=== PATIENT | male | born 1960 | race Caucasian/White ===

== ENCOUNTER 2019-02-13 03:01 | Emergency (ER) | payer OTHER ==
[2019-02-13 03:09] VITALS: BMI 25.0
--- NOTE | 2019-02-13 03:45 | PDOC ---
History of Present Illness - General Chief Complaint: Choking Sensation Stated Complaint: THROAT PAIN Time Seen by Provider: 02/13/19 03:44 Past History - Past Medical History Allergies/Adverse Reactions: Allergies Allergy/AdvReac Type Severity Reaction Status Date / Time No Known Allergies Allergy Verified 02/13/19 03:09 Home Medications: Ambulatory Orders Apremilast [Otezla] 30 mg PO BID 02/13/19 Lisinopril [Zestril] 2.5 mg PO DAILY 02/13/19 Methylprednisolone [Medrol Dose Lukasz] 4 mg PO ASDIR #21 tablet 02/13/19 COPD: No HTN: Yes Other medical history: psoriasis - Psycho Social/Smoking Cessation Hx Smoking History: Never smoked Hx Alcohol Use: Yes Drug/Substance Use Hx: No *Physical Exam - Vital Signs Last Vital Signs Temp Pulse Resp BP Pulse Ox 97.7 F 68 18 172/85 H 99 02/13/19 03:05 02/13/19 03:05 02/13/19 03:05 02/13/19 03:05 02/13/19 03:05 Medical Decision Making - Medical Decision Making HPI: 59yo M with PMH of HTN, psoriasitic arthritis presenting with abnormal throat sensation. Patient states he had pizza last night for dinner and went to bed. He woke up at 2:30am with a sensation that "something was stuck" in his throat. Has been able to control secretions and tolerated drinking water. No nausea or vomiting. Denies new exposures: no new detergents, clothing, foods, animals, environments, medications/dose changes. Never had anything like this before. Denies rashes or itching. Takes lisinopril 2.5mg daily. Snores at night and has had sleep studies performed in the past. No fevers, chills, chest pain, or shortness of breath. PCP: Dr. Pagan ROS: Constitutional: no fever, no chills HEENT: +throat pain, no dysphagia Cardiovascular: no chest pain, no palpitations Respiratory: no cough, no shortness of breath Gastrointestinal: no abdominal pain, no nausea Genitourinary: no dysuria, no hematuria Musculoskeletal: no myalgia, no arthralgia Skin: no rash, no itching Neurologic: no headache, no weakness PE: General: Awake, alert, and fully oriented, in no acute distress Head: No signs of trauma Eyes: EOMI, sclera anicteric ENT: Moist mucus membranes, uvula swollen and midline, no oral masses or lesions Neck: Normal ROM, supple Lungs: Lungs clear, Normal breath sounds Cardio: Regular rhythm, S1 and S2 present Abdomen: Soft, nontender. No guarding, no rebound, no masses Extremities: Normal range of motion, Distal pulses present SKIN: Warm, Dry, normal turgor Neurologic: Cranial nerves II through XII grossly intact. Normal speech ED Course/MDM: DDX including but not limited to uvular inflammation, globus sensation, angioedema, peritonsillar cellulitis, abscess, anaphylaxis Decadron 10mg IM Will reassess 02/13/19 03:44 Patient feeling better after decadron and asking to go home. He may have sustained uvular swelling from snoring with his mouth open. I have low suspicion for angioedema or anaphylaxis. Uvular swelling decreased ENT referral Medrol dose lukasz Discharged with return precautions 02/13/19 05:20 Discharge - Discharge Information Problems reviewed: Yes Clinical Impression/Diagnosis: Uvular edema Condition: Stable Disposition: HOME - Additional Discharge Information Prescriptions: Methylprednisolone [Medrol Dose Lukasz] 4 mg PO ASDIR #21 tablet - Follow up/Referral Referrals: Chintan Pagan Jr., MD [Primary Care Provider] - Travis Edward MD [Staff Physician] - - Patient Discharge Instructions Additional Instructions: You came into the emergency department for an abnormal sensation in your throat. We gave you medicine which helped improve your symptoms. Prescription sent to your pharmacy. Take as instructed. We have referred you to an ENT specialist to further evaluate your throat. Call and make an appointment. Your workup is not complete until you do so. Follow-up with your primary care doctor within 72 hours to discuss this ED visit and to further evaluate your symptoms. Call and make an appointment. Your workup is not complete until you do so. Immediate medical attention is required if you: develop swelling of the neck or tongue, stiff neck or difficulty opening the mouth, skin rash, difficulty breathing, or any new or concerning symptoms. If you think you are having an emergency, call for emergency medical services or present to the emergency department right away - Post Discharge Activity Work/Back to School Note: Back to Work
--- NOTE | 2019-02-13 03:48 | PDOC ---
Attending Attestation - Resident Resident Name: Jada Purcell - ED Attending Attestation I have performed the following: I have examined & evaluated the patient, The case was reviewed & discussed with the resident, I agree w/resident's findings & plan - HPI HPI: 02/13/19 05:48 see resident hpi - Physicial Exam PE: 02/13/19 05:49 agree with resident exam - Medical Decision Making 02/13/19 05:49 59-year-old male with sensation of throat swelling Exam consistent with uvulitis Patient markedly improved after dexamethasone 10 mg IM And for DC home with outpatient ENT follow-up
[2019-02-13] MEDS ORDERED: DEXAMETHASONE SOD PHOSPHATE 10 MG/1 ML VIAL IM ONE (04:34)
[2019-02-13] MEDS ORDERED: DEXAMETHASONE SOD PHOSPHATE 10 MG/1 ML VIAL ONE (04:45)
[2019-02-13 05:32] VITALS: BP 163/94; PULSE 64; TEMP 97.9
== END 2019-02-13 05:30 | disposition home or self-care (01) ==
LOC: JER 03:01
PROC: 3E023GC Introduction of Other Therapeutic Substance into Muscle, Percutaneous Approach (ICD-10-PCS; principal; 2019-02-13)
DX: K12.2 Cellulitis and abscess of mouth (principal); I10 Essential (primary) hypertension; L40.50 Arthropathic psoriasis, unspecified
CPT/HCPCS: 99281-25; J1100